=== PATIENT | female | born 1950 | race Caucasian/White ===

== ENCOUNTER 2016-12-01 15:13 | Emergency (ER) | payer OTHER ==
[~2016-12-01] VITALS: Ht 154.9 cm; Wt 89.0 kg
[~2016-12-01 15:13] MED LIST: AZIT250T6; GEMF600T; GLUC500T11; HYDR-3498 PO; HYDR12.53; HYDR1CAP; IBUP-1542 PO; LOVASTATIN; SINGULAIR
[2016-12-01 15:18] VITALS: Ht 154.9 cm; Wt 89.0 kg
[2016-12-01] MEDS ORDERED: IBUP-1542 PO (16:22)
[2016-12-01] MEDS ORDERED: HYDR-906 PO (16:22)
--- NOTE | 2016-12-01 16:29 | ERD ---
ER Documentation Chief Complaint Date/Time DATE: 12/01/16 TIME: 16:25 Chief Complaint MAURA KNEE PAIN, HAS ARTHERITIS HPI Patient is a 66-year-old female who has a history of arthritis and is complaining of bilateral knee pain. She knows it is related to her arthritis and there is no recent trauma or fall. She states at home she would take Dover for the pain which she states she ran out. She denies any fever. Denies any numbness or tingling. She is able to ambulate slowly. She is requesting refill of pain medication as well as a cane of possible ROS All systems reviewed and are negative except as per history of present illness. Medications Home Meds Active Scripts Hydrocodone/Acetaminophen ([place] 5-325 Tablet) 1 Each Tablet, 1 TAB PO Q6H Y for PAIN, #20 TAB Prov:ODETTE PEREA PA-C 12/01/16 Ibuprofen* (Ibuprofen*) 600 Mg Tablet, 600 MG PO Q6H Y for PAIN, #30 TAB Prov:ODETTE PEREA PA-C 12/01/16 Ibuprofen* (Motrin*) 600 Mg Tab, 600 MG PO Q6, #20 TAB Prov:DEMETRIUS REYES MD 10/08/15 Hydrocodone Bit-Acetaminophen* ([place]*) 5-325 Mg Tab, 1 TAB PO Q6 Y for PAIN, # 16 TAB Prov:DEMETRIUS REYES MD 10/08/15 Ibuprofen* (Motrin*) 600 Mg Tab, 600 MG PO Q6, #30 TAB Prov:JENARO VALIENTE 02/05/15 Hydrocodone Bit-Acetaminophen* ([place]*) 5-325 Mg Tab, 1 TAB PO Q6 Y for PAIN, # 15 TAB Prov:JENARO VALIENTE 02/05/15 Reported Medications Glucosamine Hcl (Glucosamine Hcl) 500 Mg Tablet 03/27/13 Azithromycin* (Azithromycin*) 250 Mg Tablet 03/27/13 [Lovastatin] No Conflict Check 03/27/13 [Singulair] No Conflict Check 03/27/13 Gemfibrozil* (Lopid*) 600 Mg Tablet, BID 03/27/13 Hydrochlorothiazide (Hydrochlorothiazide) 12.5 Mg Capsule 03/27/13 Hydrocodone Bit/Acetaminophen (Hydrocodone-Apap 5-500 Cap) 1 Cap Capsule 03/27/13 Allergies Allergies: Coded Allergies: metronidazole (Verified Allergy, Intermediate, HIVES/RASH/ITCHINESS, 04/01) PMhx/Soc History of Surgery: Yes (, PCI WITH STENT PLACEMENT 03/24) Anesthesia Reaction: Yes (DC S/P DUE TO ANESTHESIA) Hx Neurological Disorder: No Hx Respiratory Disorders: Yes (ASTHMA) Hx Cardiac Disorders: Yes (DC, HIGH CHOLESTEROL, CAD ) Hx Psychiatric Problems: Yes (ANXIETY & INSOMNIA) Hx Miscellaneous Medical Probl: Yes (s/p PCI (03/24), Hepatic Flexure Ulcer) Hx Alcohol Use: No Hx Substance Use: No Hx Tobacco Use: No FmHx Family History: No diabetes Physical Exam Vitals Vital Signs Date Time Temp Pulse Resp B/P Pulse Ox O2 Delivery O2 Flow Rate FiO2 12/01/16 15:18 98.3 83 22 148/74 99 Physical Exam General: well developed, well nourished, alert, nontoxic, no distress Head: normocephalic, atraumatic Respiratory: Clear to auscaultation bilaterally, speaks in full sentences, no use of accesory muscles or labored breathing, no rales, ronchi, or wheezing Cardiovascular: RRR, No murmurs Extremities: moving all extremities normally, normal gait, no edema. Bilateral knees: No erythema, no edema, full range of motion, no bony abnormalities, nontender throughout sensation to light touch intact Results 24 hrs Current Medications Medications (Trade) Dose Ordered Sig/Moiz Route PRN Reason Start Time Stop Time Status Last Admin Dose Admin Acetaminophen/ Hydrocodone Bitart ([place] (5/325)) 1 tab ONCE ONCE PO 12/01/16 16:30 12/01/16 16:31 DC 12/01/16 16:29 Procedures/MDM Patient has arthritic knee pain. He is neurovascular intact and there is no trauma. Is no evidence of infection or septic joint. She was given a Dover here and we were gave her a cane. She was discharged with Dover. Recommended this patient follow up with her primary care doctor within 48 hours or return to the emergency room for any worsening of symptoms. However this time I do believe there is suitable for outpatient management. I answered all their questions and they agreed with the plan and were discharged home. Departure Diagnosis: Primary Impression: Degenerative joint disease Condition: Stable Patient Instructions: Arthralgia Additional Instructions: Llame al doctor MAANA y chris roverto LEO PARA DENTRO DE 1-2 BOUCHER.Dgale a la secretaria que nosotros le instruimos hacer esta leo.Avise o llame si brown condicin se empeora antes de la leo. Regresa aqui si peor o no mejor. ODETTE PEREA PA-C Dec 01, 2016 16:29
[2016-12-01] MEDS ORDERED: HYDROCODONE/APAP (5/325) TAB PO ONE (16:30)
== END 2016-12-01 17:05 | disposition home or self-care (01) ==
LOC: FTE 15:13
DX: M17.0 Bilateral primary osteoarthritis of knee (principal); J45.909 Unspecified asthma, uncomplicated; I25.10 Atherosclerotic heart disease of native coronary artery without angina pectoris; M25.562 Pain in left knee; Z98.61 Coronary angioplasty status
CPT/HCPCS: 99283

== ENCOUNTER 2016-12-06 08:22 | Emergency (ER) | payer OTHER ==
[~2016-12-06] VITALS: Wt 89.5 kg
[~2016-12-06 08:22] MED LIST changes: +HYDR-906 PO
[2016-12-06] MEDS ORDERED: IPRATROPIUM (NEB) 0.5 MG/2.5 ML AMP NEB STA (09:21)
[2016-12-06] MEDS ORDERED: ALBUTEROL 0.083% (NEB) 2.5 MG/3 ML AMP NEB STA (09:21)
--- NOTE | 2016-12-06 09:52 | RADRPT ---
PROCEDURE: Chest x-ray CLINICAL INDICATION: Cough TECHNIQUE: Chest 2 views COMPARISON: None FINDINGS: The heart is normal in size. The pulmonary vessels are normal in caliber. The lungs are clear. Th e costophrenic angles are sharp. The visualized bony thorax is unremarkable. As before there is lef t AC joint separation with secondary degenerative changes IMPRESSION: No acute cardiopulmonary disease. RPTAT: HH .Len Lee MD, MD Date Time Electronically viewed and signed by .Len Lee MD, on 12/06/2016 09:51 .W/
--- NOTE | 2016-12-06 10:02 | ERD ---
ER Documentation Chief Complaint Date/Time DATE: 12/06/16 TIME: 10:02 Chief Complaint COUGH, THROAT PAIN, RIGHT EAR PAIN, SOB HPI This 66-year-old female who presents to the emergency department today complaining of cough, sore throat and earache and shortness of breath for the past few days. States she has not tried any [id number]-[id number]-dgrpvun medications. Denies any fevers or chills per ROS All systems reviewed and are negative except as per history of present illness. Medications Home Meds Active Scripts Benzonatate* (Tessalon Perle*) 100 Mg Capsule, 100 MG PO Q8H Y for COUGH for 7 Days, CAP Prov:GUS KOHLER PA-C 12/06/16 Fluticasone Propionate (Flonase Allergy Relief) 9.9 Ml [place].susp, 2 SPRAY NASAL DAILY, #1 BOTTLE TO EACH NOSTRIL Prov:GUS KOHLER PA-C 12/06/16 Albuterol Sulfate* (Proair HFA*) 8.5 Gm Hfa.aer.ad, 2 PUFF INH Q4, #1 INHALER Prov:GUS KOHLER PA-C 12/06/16 Azithromycin* (Zithromax*) 250 Mg Tablet, 250 MG PO .ZPACK DIRECTED, #6 TAB TAKE 500 MG (2 TABS) THE FIRST DAY THEN 250 MG (1 TAB) DAYS 2-5 Prov:GUS KOHLER PA-C 12/06/16 Hydrocodone/Acetaminophen ([place] 5-325 Tablet) 1 Each Tablet, 1 TAB PO Q6H Y for PAIN, #20 TAB Prov:ODETTE PEREA PA-C 12/01/16 Ibuprofen* (Ibuprofen*) 600 Mg Tablet, 600 MG PO Q6H Y for PAIN, #30 TAB Prov:ODETTE PEREA PA-C 12/01/16 Ibuprofen* (Motrin*) 600 Mg Tab, 600 MG PO Q6, #20 TAB Prov:DEMETRIUS REYES MD 10/08/15 Hydrocodone Bit-Acetaminophen* ([place]*) 5-325 Mg Tab, 1 TAB PO Q6 Y for PAIN, # 16 TAB Prov:DEMETRIUS REYES MD 10/08/15 Ibuprofen* (Motrin*) 600 Mg Tab, 600 MG PO Q6, #30 TAB Prov:JENARO VALIENTE 02/05/15 Hydrocodone Bit-Acetaminophen* ([place]*) 5-325 Mg Tab, 1 TAB PO Q6 Y for PAIN, # 15 TAB Prov:JENARO VALIENTE 02/05/15 Reported Medications Glucosamine Hcl (Glucosamine Hcl) 500 Mg Tablet 03/27/13 Azithromycin* (Azithromycin*) 250 Mg Tablet 03/27/13 [Lovastatin] No Conflict Check 03/27/13 [Singulair] No Conflict Check 03/27/13 Gemfibrozil* (Lopid*) 600 Mg Tablet, BID 03/27/13 Hydrochlorothiazide (Hydrochlorothiazide) 12.5 Mg Capsule 03/27/13 Hydrocodone Bit/Acetaminophen (Hydrocodone-Apap 5-500 Cap) 1 Cap Capsule 03/27/13 Allergies Allergies: Coded Allergies: metronidazole (Verified Allergy, Intermediate, HIVES/RASH/ITCHINESS, ) PMhx/Soc History of Surgery: Yes (, PCI WITH STENT PLACEMENT 03/24) Anesthesia Reaction: Yes (SD S/P DUE TO ANESTHESIA) Hx Neurological Disorder: No Hx Respiratory Disorders: Yes (ASTHMA) Hx Cardiac Disorders: Yes (SD, HIGH CHOLESTEROL, CAD ) Hx Psychiatric Problems: Yes (ANXIETY & INSOMNIA) Hx Miscellaneous Medical Probl: Yes (s/p PCI (03/24), Hepatic Flexure Ulcer) Hx Alcohol Use: No Hx Substance Use: No Hx Tobacco Use: No Smoking Status: Never smoker Physical Exam Vitals Vital Signs Date Time Temp Pulse Resp B/P Pulse Ox O2 Delivery O2 Flow Rate FiO2 12/06/16 09:44 63 17 95 21 12/06/16 08:29 98.5 82 19 167/80 98 Physical Exam Const: No acute distress Head: Atraumatic Eyes: Normal Conjunctiva ENT: Ears TMs normal. Nose no drainage. Throat erythema no exudate. Drainage posterior pharynx Neck: Full range of motion..~ No meningismus. Resp: Diffuse faint wheezing bilaterally in all lung mcgee. Cardio: Regular rate and rhythm, no murmurs Skin: No petechiae or rashes Neur: Awake and alert Psych: Normal Mood and Affect Results 24 hrs Current Medications Medications (Trade) Dose Ordered Sig/Moiz Route PRN Reason Start Time Stop Time Status Last Admin Dose Admin Albuterol (Proventil 0.083% (Neb)) 5 mg ONCE STAT NEB 12/06/16 09:21 12/06/16 09:23 DC 12/06/16 09:43 Ipratropium Robbins (Atrovent 0.02% (Neb)) 0.5 mg ONCE STAT NEB 12/06/16 09:21 12/06/16 09:23 DC 12/06/16 09:43 DIAGNOSTIC IMAGING REPORT Patient: RYAN NAVA : 1950 Age: 66 Sex: F MR #: [id number] DOS: 12/06/16 0000 Ordering MD: GUS KOHLER PA-C Location: [facility] Room/Bed: PROCEDURE: Chest x-ray CLINICAL INDICATION: Cough TECHNIQUE: Chest 2 views COMPARISON: None FINDINGS: The heart is normal in size. The pulmonary vessels are normal in caliber. The lungs are clear. The costophrenic angles are sharp. The visualized bony thorax is unremarkable. As before there is left AC joint separation with secondary degenerative changes IMPRESSION: No acute cardiopulmonary disease. RPTAT: HH .Len Lee MD, MD Date Time Electronically viewed and signed by .Len Lee MD, MD on 12/06/2016 09:51 .W/ CC: GSU KOHLER PA-C Procedures/MDM This 66-year-old female who presents the emergency department today with URI symptoms. Patient was coughing up a small amount of blood tinged sputum and therefore did obtain a two-view chest x-ray that was unremarkable. There is no evidence of TB or pneumonia. Patient is afebrile and otherwise well-appearing. Her oxygen saturation 98%. She is not tachycardic. She has not had any recent prolonged travel. She has no lower extremity pain. Low suspicion for PE , TB. I do not feel the patient requires laboratory workup or further imaging at this time. The remainder of her ENT exam is essentially benign with the exception of some drainage on her posterior pharynx. Her cough may also be related to allergic rhinitis. Low suspicion for otitis media, otitis externa, mastoiditis, strep pharyngitis, retropharyngeal abscess or peritonsillar abscess. Patient did have some wheezing on physical exam and was therefore given a breathing treatment and she reported symptomatic improvement. Patient symptoms at this time is consistent with bronchitis versus viral URI. Patient will be given a prescription for azithromycin, Flonase, ProAir air and Tessalon Perles At this time the patient is stable for discharge and outpatient management. Patient should follow up with their PCP in the next 1-2 days. They may return to the emergency department sooner for any persistent or worsening of symptoms. Patient understood and agreed with the plan. Discussed the patient with Dr Carrera and he is in agreement with the plan. Departure Diagnosis: Primary Impression: URI (upper respiratory infection) URI type: unspecified URI Qualified Code: J06.9 - Upper respiratory tract infection, unspecified type Condition: GUS Romo PA-C Dec 06, 2016 10:02
[2016-12-06] MEDS ORDERED: ALBU8.5H3 INH (10:14)
[2016-12-06] MEDS ORDERED: AZIT250T94 PO (10:14)
[2016-12-06] MEDS ORDERED: FLUT9.9S NASAL (10:14)
[2016-12-06] MEDS ORDERED: BENZ100C70 PO (10:15)
== END 2016-12-06 10:21 | disposition home or self-care (01) ==
LOC: FTE 08:22
DX: J06.9 Acute upper respiratory infection, unspecified (principal); J45.909 Unspecified asthma, uncomplicated
CPT/HCPCS: 71020; 94664

== ENCOUNTER 2016-12-27 14:42 | Emergency (ER) | payer OTHER ==
[~2016-12-27] VITALS: Ht 162.6 cm; Wt 90.0 kg
[~2016-12-27 14:42] MED LIST changes: +ALBU8.5H3 INH; +AZIT250T94 PO; +BENZ100C70 PO; +FLUT9.9S NASAL
[2016-12-27 14:54] VITALS: Ht 162.6 cm; Wt 90.0 kg
== END 2016-12-27 17:38 | disposition left against medical advice (07) ==
LOC: E/R 14:42
DX: Z53.21 Procedure and treatment not carried out due to patient leaving prior to being seen by health care provider (principal)